=== PATIENT | female | born 1995 | race Caucasian/White ===

== ENCOUNTER 2022-01-25 01:02 | Outpatient (CLI) | payer MEDICAID, SELFPAY ==
--- NOTE | 2022-01-25 | DI.US_ITS ---
Exam(s) US OB GRACE WEIGHT EXAM: US OB GRACE WEIGHT CLINICAL HISTORY: Z34.03, GROWTH SCAN 36 WKS, SIZE LESS THAN DATES, FUNDAL HT NOT INCREASING. TECHNIQUE: Transabdominal obstetrical ultrasound was performed. COMPARISON: No exams were available for comparison FINDINGS: There is a single viable intrauterine gestation with cardiac activity identified-143 bpm The fetus is presently in cephalic position . Amniotic fluid: There is a normal amount of amniotic fluid with an GRACE of 0.5cm. Placental location: The placenta is fundal grade 3,with no evidence of placenta previa. Dating parameters place this at approximately 34 weeks and 5 days gestational age, implying CARLEE of March 03, 2022. BPD measures 3 5 weeks and 3 days HC measures 35 weeks and 0 days AC measures 30 weeks and 1 day FL measures 36 weeks and 0 Estimated weight is 2297 gm-5 pounds 1 ounce Fetus is only at the 7th percentile on the Hadlock scale. Umbilical artery Dopplers: Two level studied: S/D = 2.61 and 2.12 PI= 1.03 and 0.84 RI= 0.62 and 0.53 IMPRESSION:: Viable 3rd trimester gestation, as described above. Fetus is only at the 7th percentile on the Hadlock scale DATA REPOSITORY:
== END 2022-01-25 01:22 ==
PROVIDERS: Visit Provider Advanced Practice Midwife
DX: O36.5930 Maternal care for other known or suspected poor fetal growth, third trimester, not applicable or unspecified (principal); Z3A.36 36 weeks gestation of pregnancy
CPT/HCPCS: 76816